=== PATIENT | male | born 1960 | race Caucasian/White ===

== ENCOUNTER 2019-10-03 19:51 | Emergency (ER) | payer MEDICAID ==
[~2019-10-03] VITALS: Ht 177.8 cm; Wt 75.0 kg
[2019-10-03 19:54] VITALS: Ht 177.8 cm; Wt 75.0 kg
[2019-10-03] MEDS ORDERED: GLUCOPHAGE500 MG (19:56)
[2019-10-03] MEDS ORDERED: DEPAKOTE125 MG (19:56)
[2019-10-03] MEDS ORDERED: ELAVIL75 MG (19:56)
[2019-10-03] MEDS ORDERED: LISINOPRIL10 MG PO (19:57)
[2019-10-03] MEDS ORDERED: SYMBICORT 80-10.2 GM INH (19:57)
[2019-10-03 20:08] LABS: BASOPHILS 0.3 % (0-2); EOSINOPHILS 1.7 % (0-7); HEMATOCRIT 43.9 % (42.0-54.0); HEMOGLOBIN 15.2 g/dL (13.5-17.5); IMMATURE GRANULOCYTES 0.5 % (0-5); LYMPHOCYTES 34.5 % (15-50); MCH 31.6 pg (26.0-34.0); MCHC 34.6 g/dL (31.0-37.0); MCV 91.3 fL (80.0-100.0); MEAN PLATELET VOLUME 8.9 fL (7.4-10.4); MONOCYTES 6.7 % (2-11); NEUTROPHILS 56.3 % (40-80); PLATELET COUNT 302 10x3/uL (130-400); RBC 4.81 10x6/uL (4.20-6.10); RDW 11.9 % (11.5-14.5); WBC 14.7 10x3/uL (4.8-10.8)
[2019-10-03 20:15] LABS: CALC OSMOLALITY 260 mosm/kg (275-300); CALCIUM 8.8 mg/dL (8.5-10.1); CARBON DIOXIDE 25.4 mmol/L (21.0-32.0); CHLORIDE - SERUM 96 mmol/L (98-107); CREATININE - SERUM 0.7 mg/dL (0.6-1.3); GLUCOSE 86 mg/dL (74-106); POTASSIUM - SERUM 3.8 mmol/L (3.5-5.1); SODIUM 130 mmol/L (136-145); UREA NITROGEN 15 mg/dL (7-18); eGFR NON AFRICAN AMERICAN > 90 mL/min (90-120)
[2019-10-03 20:22] LABS: ALBUMIN 3.7 g/dL (3.4-5.0); ALKALINE PHOSPHATASE 60 U/L (30-120); ALT (SGPT) 16 U/L (10-68); BILIRUBIN - TOTAL 0.19 mg/dL (0.2-1.3); MAGNESIUM - SERUM 1.9 mg/dL (1.8-2.4); VALPROIC ACID (DEPAKOTE) 44.1 ug/mL (50.0-100.0)
[2019-10-03 21:06] LABS: BILIRUBIN NEGATIVE (NEGATIVE); GLUCOSE NEGATIVE (NEGATIVE); KETONE NEGATIVE (NEGATIVE); NITRITE NEGATIVE (NEGATIVE); SPECIFIC GRAVITY 1.005 (1.005-1.020); UROBILINOGEN NORMAL (NORMAL)
[2019-10-03 21:16] LABS: UDS - AMPHET NEGATIVE QUAL (NEGATIVE); UDS - BARB NEGATIVE QUAL (NEGATIVE); UDS - BENZO POSITIVE QUAL (NEGATIVE); UDS - COCAINE NEGATIVE QUAL (NEGATIVE); UDS - OPIATE NEGATIVE QUAL (NEGATIVE); UDS - PCP NEGATIVE QUAL (NEGATIVE); UDS - THC NEGATIVE QUAL (NEGATIVE)
--- NOTE | 2019-10-04 02:47 | NUR ---
PATIENT IS IN ER 19 WITH SUICIDIAL IDEATIONS, HE HAS A HISTORY OF DEPRESSION AND JUST RECENTLY GOT OUT OF [facility] FOR THIS ISSUE. HE HAS POOR EYE CONTACT, HE RELUCTANTLY ANSWERED QUESTIONS, HE CAN NOT COMMIT TO A SAFETY PLAN AND REFUSES TO TAKE INFORMATION WITH NUMBERS OR WEB ADDRESSES. PATIENT WILL BE PLACED ON 1:1. PATIENT IS IN PAPER SCRUBS
[2019-10-04 05:17] VITALS: BP 132/80
== END 2019-10-04 05:17 ==
LOC: D.ER 19:51
PROVIDERS: Family Medicine
DX: F10.129 Alcohol abuse with intoxication, unspecified (principal); Y90.6 Blood alcohol level of 120-199 mg/100 ml; F32.9 Major depressive disorder, single episode, unspecified; R45.851 Suicidal ideations; J44.9 Chronic obstructive pulmonary disease, unspecified; I10 Essential (primary) hypertension